=== PATIENT | male | born 1985 | race Caucasian/White ===

== ENCOUNTER 2019-03-27 13:23 | Inpatient (IN) ==
[2019-03-27] MEDS ORDERED: 0.9 % Sodium Chloride 1,000 ML IVC ONE ×3 (13:41→19:21)
--- NOTE | 2019-03-27 13:44 | Emergency Department Note ---
Disposition Clinical Impression: Acute epididymitis Sepsis Qualifiers: Sepsis type: sepsis due to unspecified organism Qualified Code(s): A41.9 - Sepsis, unspecified organism Urinary tract infection Qualifiers: Urinary tract infection type: acute cystitis Hematuria presence: without hematuria Qualified Code(s): N30.00 - Acute cystitis without hematuria Disposition: Still a Patient Referrals: NONE,PCP [Primary Care Provider] - Forms: ED Satisfaction Letter Time of Disposition: 19:18 General Adult HPI - General Chief complaint: ED Urogenital-Male Stated complaint: Low back pain,Unable to urinateTesticular pain Time Seen by Provider: 03/27/19 13:33 Source: patient, family Mode of arrival: private vehicle Limitations: no limitations Nursing Notes Reviewed: Yes Vital Signs Reviewed: Yes - History of Present Illness HPI Narrative: Patient is a 33-year-old male with no past medical history presenting with a chief complaint of difficulty urinating and right testicular swelling since yesterday. He states he has been having intermittent swelling and pain of his right testicle for several weeks. He went to the emergency department 2 weeks ago and was diagnosed with epididymitis. He was discharged home on doxycycline for 2 weeks. He states as of yesterday, he had 2 pills left. He states he was feeling better until yesterday morning when he woke up having difficulty urinating throughout the day. He states it is decreased urination, dark urine, foul smelling and he has a difficult time starting a stream. He also low back pain and intermittent abdominal pain after he urinates. He denies hematuria. He also states his right testicle is swollen again and painful. He complains of chills but no documented fevers. He has decreased appetite, nausea but no vomiting. No abnormal bowel movements. He states he has not urinated since yesterday evening. He states he has had sexual activity with one partner the past couple of weeks. Denies back trauma. Pain Scale: 6 - Related Data Previous Rx's Medication Instructions Recorded Doxycycline Monohydrate [Mondoxyne 100 mg PO BID #28 capsule 03/10/19 ] Naproxen [Naprosyn] 500 mg PO BID #12 tablet 03/10/19 Allergies Allergy/AdvReac Type Severity Reaction Status Date / Time Amoxicillin Allergy Hives Verified 03/10/19 18:55 aspirin Allergy Hives Verified 03/10/19 18:55 All systems ED: reviewed and negative except as stated. Review of Systems: As Per HPI Constitutional: Reports: chills. Denies: fever Cardiovascular: Denies: chest pain, palpitations Respiratory: Denies: cough, dyspnea Gastrointestinal: Reports: abdominal pain, nausea. Denies: vomiting, diarrhea Genitourinary: Reports: dysuria, testicular pain. Denies: hematuria Neurological: Denies: headache, weakness Past Medical History - Past Medical History Attestation: Yes The following information was validated with the patient. 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 Absent: respiratory distress, wheezes - Cardiovascular Cardiovascular exam: Present: normal rhythm, tachycardia, normal heart sounds - Abdominal Exam Abdominal exam: Present: soft, Non-Tender. Absent: distention, guarding - Male exam: Present: other (Dr. Nettles present for examination. No gross testicular swelling, tenderness to palpation of right testicle in the posterior region, no knots noted, no abnormal discharge or lesions, uncircumcised without evidence of balanitis or phimosis. Cremasteric reflex present bilaterally) - Extremities Exam Extremities exam: Present: normal capillary refill. Absent: pedal edema - Back Exam Back exam: Present: other (No back tenderness to palpation). Absent: tenderness, CVA tenderness (R), CVA tenderness (L) - Neurological Exam Neurological exam: Present: alert, oriented X3 - Psychiatric Psychiatric exam: Present: normal affect, normal mood - Skin Skin exam: Present: warm, dry. Absent: diaphoresis, pallor Course Vital Signs Temperature 98.7 F 03/27/19 13:29 Pulse Rate 141 03/27/19 13:29 Respiratory Rate 16 03/27/19 13:29 Blood Pressure 126/73 03/27/19 13:29 O2 Sat by Pulse Oximetry 99 03/27/19 13:29 Temperature 98.0 F 03/27/19 17:07 Pulse Rate 117 03/27/19 19:15 Respiratory Rate 24 03/27/19 19:15 Blood Pressure 82/47 03/27/19 19:15 O2 Sat by Pulse Oximetry 100 03/27/19 19:15 Oxygen Delivery Oxygen Delivery Room Air Medical Decision Making - [facility] Narrative Medical decision making narrative: Patient likely has epididymitis and possible urinary tract infection. We will obtain urinalysis. He is tachycardic without a fever. We will give him 1 L IV fluids. We will obtain CBC, BMP. Patient did receive a 2 week course of doxycycline. There is no microbiology results for a prior urine culture. He had an ultrasound done on his prior ER visit two weeks ago that was positive for epididimitis. He is tenderness of the right testicle, likely has epididymitis as he did not finish his antibiotics. He has a cremasteric reflex that is present. No other acute abnormalities noted. No lesions, or abnormal discharge. Nontender abdomen. We will not repeat imaging as there is a low clinical suspicion for torsion. 15:45 Heart rate has decreased to 120s. Patient has any increased pain after urinating. Urinalysis pending at this time. We will give an additional liter of IV fluids. We will also give him IV Toradol. Will also give IV Levaquin. 16:00 Urinalysis is positive for leukocyte esterase. We will start IV Levaquin. Patient likely has epididymitis and urinary tract infection. Urine cultures will be sent. We will reevaluate the patient's vitals and how he is feeling after the second liter of IV fluids. Disposition is pending his response to fluids. 17:00 Reassess the patient. Patient's girlfriend at bedside states the patient did not complete his antibiotics. She states that he stopped them regularly when he started to feel better. When he started feeling bad yesterday he started to take them again. He still remains tachycardic with heart rate 120s after 2L IVFs. 17:10 Patient's blood pressures borderline. Aviles tart maintenance fluids. Add Rocephin to the Levaquin. He will require admission for sepsis due to e pididymitis and urinary tract infection. 17:20 Discussed with Hospitalist, Dr. Arredondo, who is requesting a repeat ultrasound scrotum to rule out torsion. 18:30 Most recent blood pressure is 103 systolic. Patient reevaluated, he is still complaining of testicular pain that really turn. We will give another dose of IV Toradol. He is also complaining of nausea. We will give Zofran. Patient n ow admits that he had IV drug use and he has track handy on his arm. Family thinks he is also withdrawing. 19:00 At the time of signout, the snack stewardess's family states the patient also has a history of hepatitis A, B, C which she does not receive any medications for. He has not been complaining of abdominal pain however discussed with sign out that the patient will receive a CT abdomen and pelvis to evaluate for pyelonephritis, acute surgical issue such as appendicitis. She was signed out to Dr. Ponce and Dr. Serna. - Medical Records Medical records reviewed: Yes I reviewed the patient's medical records. - Lab Data Lab results reviewed: Yes I reviewed the patient's lab results. Result diagrams: 03/27/19 13:41 03/27/19 13:41 Lab Results 03/27/19 03/27/19 03/27/19 Range/Units 13:41 13:41 15:37 WBC 11.5 H (4.3-11.1) K/mcL RBC 5.07 (4.19-5.50) M/mcL Hgb 14.6 (12.9-16.9) g/dL Hct 45.3 (37.5-50.1) % MCV 89.3 (83.0-100.0) fL MCH 28.8 (28.0-33.3) pg MCHC 32.2 (31.6-35.5) g/dL RDW 13.9 (11.5-14.5) % Plt Count 164 (140-400) K/mcL MPV 9.2 L (9.4-12.4) fL Seg Neutrophils % 83.0 % Band Neutrophils % 14.0 H (0-4) % Lymphocytes % 2.0 % Monocytes % 1.0 % Neutrophils # 11.2 H (1.6-8.9) K/mcL Lymphocytes # 0.2 L (0.6-4.6) K/mcL Monocytes # 0.1 (0.0-1.3) K/mcL Platelet Estimate Normal (Normal) Large Platelets Present A (Not Present) Sodium 140 (136-145) mEq/L Potassium 5.0 (3.5-5.1) mEq/L Chloride 101 (98-107) mEq/L Carbon Dioxide 28 (23-29) mEq/L BUN 12 (6-20) mg/dL Creatinine 1.04 (0.70-1.30) mg/dL Est GFR ( Amer) > 60 (> 60) Est GFR (Non-Af Amer) > 60 (> 60) BUN/Creatinine Ratio 12 (6-26) Glucose 129 H (70-105) mg/dL Calculated Osmolality 291 (280-300) Lactic Acid (0.5-2.2) mmol/L Calcium 9.5 (8.6-10.3) mg/dL Urine Color Dark Yellow (Yellow) Urine Clarity Clear (Clear) Urine pH 6.0 (5.0-8.0) pH Units Ur Specific [place] < 1.005 L (1.010-1.025) Urine Protein Negative (Neg-Trace) mg/dL Urine Glucose (UA) Normal (Normal) mg/dL Urine Ketones Negative (Negative) mg/dL Urine Blood Negative (Negative) Urine Nitrite Negative (Negative) Urine Bilirubin Small H (Negative) Urine Urobilinogen Normal (Normal) mg/dL Ur Leukocyte Esterase Trace H (Negative) Urine Microscopic RBC 0-3 (0-3) per hpf Urine Microscopic WBC 0-3 (0-3) per hpf Ur Squamous Epith Cells Few (None-Few) per lpf Urine Bacteria None Seen (None-Few) per hpf Hyaline Casts None Seen (None-Few) per lpf Urine Yeast TNP Ur Culture Indicated? YES A (NO) 03/27/19 Range/Units 17:05 WBC (4.3-11.1) K/mcL RBC (4.19-5.50) M/mcL Hgb (12.9-16.9) g/dL Hct (37.5-50.1) % MCV (83.0-100.0) fL MCH (28.0-33.3) pg MCHC (31.6-35.5) g/dL RDW (11.5-14.5) % Plt Count (140-400) K/mcL MPV (9.4-12.4) fL Seg Neutrophils % % Band Neutrophils % (0-4) % Lymphocytes % % Monocytes % % Neutrophils # (1.6-8.9) K/mcL Lymphocytes # (0.6-4.6) K/mcL Monocytes # (0.0-1.3) K/mcL Platelet Estimate (Normal) Large Platelets (Not Present) Sodium (136-145) mEq/L Potassium (3.5-5.1) mEq/L Chloride (98-107) mEq/L Carbon Dioxide (23-29) mEq/L BUN (6-20) mg/dL Creatinine (0.70-1.30) mg/dL Est GFR ( Amer) (> 60) Est GFR (Non-Af Amer) (> 60) BUN/Creatinine Ratio (6-26) Glucose (70-105) mg/dL Calculated Osmolality (280-300) Lactic Acid 2.3 H (0.5-2.2) mmol/L Calcium (8.6-10.3) mg/dL Urine Color (Yellow) Urine Clarity (Clear) Urine pH (5.0-8.0) pH Units Ur Specific [place] (1.010-1.025) Urine Protein (Neg-Trace) mg/dL Urine Glucose (UA) (Normal) mg/dL Urine Ketones (Negative) mg/dL Urine Blood (Negative) Urine Nitrite (Negative) Urine Bilirubin (Negative) Urine Urobilinogen (Normal) mg/dL Ur Leukocyte Esterase (Negative) Urine Microscopic RBC (0-3) per hpf Urine Microscopic WBC (0-3) per hpf Ur Squamous Epith Cells (None-Few) per lpf Urine Bacteria (None-Few) per hpf Hyaline Casts (None-Few) per lpf Urine Yeast Ur Culture Indicated? (NO) - EKG Data EKG #1 EKG attestation: Yes I reviewed and interpreted this EKG. EKG results narrative: EKG obtained at 1751 shows sinus tachycardia with heart rate 120, WA interval 135, QRS duration 85, QTC 402, no ST elevation or depression. Critical Care Time Critical Care Time: Yes Total Critical Care Time: 35 Attestation: Rectal care time 35 minutes managing patient's sepsis. Attestation Statement - Attestation Attestation: Patient was seen with resident physician. I reviewed the history, physical, assessment and plan, and agree with the findings. I also personally evaluated this patient and had [id number] time with this patient. 33-year-old male who presents emergency Department with a history of epididymitis in the right side. He is been treated with doxycycline for the last 2 weeks. He said initially was getting better but over the last couple days been getting progressively worse. He is had increasing pain and inability to urinate. He says since yesterday. He is also had decreased by mouth intake. No nausea or vomiting. No diarrhea. Denies penile discharge. No other complaints. Patient does admit to being noncompliant with his antibiotics that he was ordered. Review of systems as above remainder negative. Physical exam vital signs are stable. ENT is unremarkable. Heart regular rhythm and rate. Lungs clear. Abdomen soft nontender. Extremities are unremarkable. Neurologically intact. Skin no rashes P it psych normal. patient has tenderness palpation of the right testicle posteriorly. There is no discharge seen from the penis anatomically is otherwise normal. ED course. Patient's initial vital signs were okay, but through the course of his stay he developed hypotension and indicated signs of sepsis. He did have tachycardia which resolved with some IV fluids. Initially we were not going to do additional imaging because the patient had no real abdominal pain and his symptoms were consistent with epididymitis. However hospitalist wanted get an ultrasound of the testicle. Additionally with a difficult time that we had getting the patient's blood pressure up above the [address] scan the abdomen and pelvis was ordered. This test was pending as was the ultrasound of the testicle at the time of shift change the patient was signed out to Dr. Merino for final d isposition. His blood pressure had improved to over 100 systolic. Patient was given some nausea medicine as he does have track handy and he may have some withdrawal symptoms which may be to his overall condition. Inevitably the patient had sepsis with likely epididymitis as the cause. Critical care time 35 minutes. Additionally patient's EKG was okay. His chest x-ray shows some possible perihilar adenopathy. Recommending CT scan. This will be ordered as well.
[2019-03-27 14:17] LABS: Hematocrit 45.3 % (37.5-50.1); Hemoglobin 14.6 g/dL (12.9-16.9); Mean Corpuscular HGB Conc 32.2 g/dL (31.6-35.5); Mean Corpuscular Hemoglobin 28.8 pg (28.0-33.3); Mean Corpuscular Volume 89.3 fL (83.0-100.0); Mean Platelet Volume 9.2 fL (9.4-12.4); Monocytes # 0.1 K/mcL (0.0-1.3); Platelet Count 164 K/mcL (140-400); Red Blood Count 5.07 M/mcL (4.19-5.50); Red Cell Distribution Width 13.9 % (11.5-14.5)
[2019-03-27 14:37] LABS: BUN/Creatinine Ratio 12 (6-26); Blood Urea Nitrogen 12 mg/dL (6-20); Calcium 9.5 mg/dL (8.6-10.3); Carbon Dioxide 28 mEq/L (23-29); Chloride 101 mEq/L (98-107); Glucose 129 mg/dL (70-105); Osmolality,Calculated 291 (280-300); Sodium 140 mEq/L (136-145); eGFR For Non-African Americans > 60 (> 60)
[2019-03-27 14:45] LABS: Lymphocytes # 0.2 K/mcL (0.6-4.6); Neutrophils # 11.2 K/mcL (1.6-8.9)
[2019-03-27 14:46] LABS: Large Platelets Present (Not Present); Platelet Estimate Normal (Normal)
[2019-03-27 15:45] LABS: Bilirubin,Urine Small (Negative); Blood,Urine Negative (Negative); Clarity,Urine Clear (Clear); Color,Urine Dark Yellow (Yellow); Glucose,Urine (UA) Normal (Normal); Ketones,Urine Negative (Negative); Leukocyte Esterase,Urine Trace (Negative); Nitrite,Urine Negative (Negative); Protein,Urine Negative (Neg-Trace); Specific Gravity,Urine < 1.005 (1.010-1.025); Urobilinogen,Urine Normal (Normal)
[2019-03-27 15:51] LABS: Bacteria,Urine None Seen per hpf (None-Few); Hyaline Casts,Urine None Seen per lpf (None-Few); RBC,Urine 0-3 per hpf (0-3); Squamous Epithelial Cell,Urine Few per lpf (None-Few); WBC,Urine 0-3 per hpf (0-3)
[2019-03-27] MEDS ORDERED: Ketorolac 15 MG/ML VIAL IVP ONE ×2 (15:56→18:35)
[2019-03-27] MEDS ORDERED: Levofloxacin 750 MG/150 ML 750 MG/150 ML BAG IVPB ONE (16:25)
[2019-03-27] MEDS ORDERED: 0.9 % Sodium Chloride 1,000 ML ONE (17:09)
[2019-03-27] MEDS ORDERED: cefTRIAXone 2,000 MG in Water for inj. (sterile) 20 ML 20 ML IVP ONE (17:12)
[2019-03-27] MEDS: 0.9 % Sodium Chloride 1,000 ML IVC SCH ×2 (17:31→23:00)
[2019-03-27] MEDS ORDERED: Ondansetron 4 MG/2 ML VIAL IVP ONE ×3 (18:36→22:42)
[2019-03-27] MEDS ORDERED: Isovue-370 500 ML BOTTLE IVP ONE ×2 (19:06→19:23)
[2019-03-27 19:42] LABS: Alanine Aminotransferase 129 Units/L (7-52); Albumin 3.6 g/dL (3.5-5.7); Albumin/Globulin Ratio 1.1 (1.1-2.2); Alkaline Phosphatase 218 Units/L (34-104); Aspartate Amino Transferase 237 Units/L (13-39); Bilirubin,Direct 1.5 mg/dL (0.0-0.2); Bilirubin,Indirect 0.7 mg/dL (0.0-1.2); Bilirubin,Total 2.2 mg/dL (0.3-1.0); Globulin 3.3 g/dL (2.4-3.5); Lipase 18 Units/L (11-82); Total Protein 6.9 g/dL (6.4-8.9)
[2019-03-27] MEDS ORDERED: Norepinephrine 4 MG in D5% in Water 250 ML IVC SCH (20:00)
--- NOTE | 2019-03-27 20:03 | Emergency Department Note ---
Disposition Clinical Impression: Septic shock Pneumonia Qualifiers: Pneumonia type: due to unspecified organism Laterality: unspecified laterality Lung location: unspecified part of lung Qualified Code(s): J18.9 - Pneumonia, unspecified organism Disposition: Admitted As Inpatient Condition: Fair Referrals: NONE,PCP [Primary Care Provider] - Forms: ED Satisfaction Letter Time of Disposition: 20:46 General Adult HPI - General Chief complaint: ED Urogenital-Male Stated complaint: Low back pain,Unable to urinateTesticular pain Time Seen by Provider: 03/27/19 13:33 Source: patient, family Mode of arrival: private vehicle Limitations: no limitations - History of Present Illness Pain Scale: 10 - Related Data Previous Rx's Medication Instructions Recorded Doxycycline Monohydrate [Mondoxyne 100 mg PO BID #28 capsule 03/10/19 Nl] Naproxen [Naprosyn] 500 mg PO BID #12 tablet 03/10/19 Allergies Allergy/AdvReac Type Severity Reaction Status Date / Time Amoxicillin Allergy Hives Verified 03/10/19 18:55 aspirin Allergy Hives Verified 03/10/19 18:55 Constitutional: Reports: chills. Denies: fever Cardiovascular: Denies: chest pain, palpitations Respiratory: Denies: cough, dyspnea Gastrointestinal: Reports: abdominal pain, nausea. Denies: vomiting, diarrhea Genitourinary: Reports: dysuria, testicular pain. 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 This patinet appers to be in septic shock and is minimally responding to IVF. [id number] and still tachycardiac. He is otherwise a candidate for a central line placement and as agreed to femoral placement of central line. Patient has been consented by myself and understands the risk. I thnk he may be at risk for endocarditis or spetic emboli or acute van. CT pending. PAtinet will be admitted to a critical are unit or transferred to [facility]. Central line placed by Dr. Wade resident Time: 19:05 - Consultations Consultation #1: discussed case with Dr. Chavira and he accepts patient to medicine service. Time: 20:47 Vital Signs Temperature 98.7 F 03/27/19 13:29 Pulse Rate 141 03/27/19 13:29 Respiratory Rate 16 03/27/19 13:29 Blood Pressure 126/73 03/27/19 13:29 O2 Sat by Pulse Oximetry 99 03/27/19 13:29 Temperature 98.0 F 03/27/19 17:07 Pulse Rate 105 03/27/19 20:36 Respiratory Rate 16 03/27/19 20:36 Blood Pressure 85/56 03/27/19 20:36 O2 Sat by Pulse Oximetry 100 03/27/19 20:36 Oxygen Delivery Oxygen Delivery Room Air Medical Decision Making - Lab Data Result diagrams: 03/27/19 13:41 03/27/19 13:41 Lab Results 03/27/19 03/27/19 03/27/19 Range/Units 13:41 13:41 15:37 WBC 11.5 H (4.3-11.1) K/mcL RBC 5.07 (4.19-5.50) M/mcL Hgb 14.6 (12.9-16.9) g/dL Hct 45.3 (37.5-50.1) % MCV 89.3 (83.0-100.0) fL MCH 28.8 (28.0-33.3) pg MCHC 32.2 (31.6-35.5) g/dL RDW 13.9 (11.5-14.5) % Plt Count 164 (140-400) K/mcL MPV 9.2 L (9.4-12.4) fL Seg Neutrophils % 83.0 % Band Neutrophils % 14.0 H (0-4) % Lymphocytes % 2.0 % Monocytes % 1.0 % Neutrophils # 11.2 H (1.6-8.9) K/mcL Lymphocytes # 0.2 L (0.6-4.6) K/mcL Monocytes # 0.1 (0.0-1.3) K/mcL Platelet Estimate Normal (Normal) Large Platelets Present A (Not Present) Sodium 140 (136-145) mEq/L Potassium 5.0 (3.5-5.1) mEq/L Chloride 101 (98-107) mEq/L Carbon Dioxide 28 (23-29) mEq/L BUN 12 (6-20) mg/dL Creatinine 1.04 (0.70-1.30) mg/dL Est GFR ( Amer) > 60 (> 60) Est GFR (Non-Af Amer) > 60 (> 60) BUN/Creatinine Ratio 12 (6-26) Glucose 129 H (70-105) mg/dL Calculated Osmolality 291 (280-300) Lactic Acid (0.5-2.2) mmol/L Calcium 9.5 (8.6-10.3) mg/dL Total Bilirubin 2.2 H (0.3-1.0) mg/dL Direct Bilirubin 1.5 H (0.0-0.2) mg/dL Indirect Bilirubin 0.7 (0.0-1.2) mg/dL AST 237 H (13-39) Units/L ALT 129 H (7-52) Units/L Alkaline Phosphatase 218 H (34-104) Units/L Serum Total Protein 6.9 (6.4-8.9) g/dL Albumin 3.6 (3.5-5.7) g/dL Globulin 3.3 (2.4-3.5) g/dL Albumin/Globulin Ratio 1.1 (1.1-2.2) Lipase 18 (11-82) Units/L Urine Color Dark Yellow (Yellow) Urine Clarity Clear (Clear) Urine pH 6.0 (5.0-8.0) pH Units Ur Specific [place] < 1.005 L (1.010-1.025) Urine Protein Negative (Neg-Trace) mg/dL Urine Glucose (UA) Normal (Normal) mg/dL Urine Ketones Negative (Negative) mg/dL Urine Blood Negative (Negative) Urine Nitrite Negative (Negative) Urine Bilirubin Small H (Negative) Urine Urobilinogen Normal (Normal) mg/dL Ur Leukocyte Esterase Trace H (Negative) Urine Microscopic RBC 0-3 (0-3) per hpf Urine Microscopic WBC 0-3 (0-3) per hpf Ur Squamous Epith Cells Few (None-Few) per lpf Urine Bacteria None Seen (None-Few) per hpf Hyaline Casts None Seen (None-Few) per lpf Urine Yeast TNP Ur Culture Indicated? YES A (NO) 03/27/19 Range/Units 17:05 WBC (4.3-11.1) K/mcL RBC (4.19-5.50) M/mcL Hgb (12.9-16.9) g/dL Hct (37.5-50.1) % MCV (83.0-100.0) fL MCH (28.0-33.3) pg MCHC (31.6-35.5) g/dL RDW (11.5-14.5) % Plt Count (140-400) K/mcL MPV (9.4-12.4) fL Seg Neutrophils % % Band Neutrophils % (0-4) % Lymphocytes % % Monocytes % % Neutrophils # (1.6-8.9) K/mcL Lymphocytes # (0.6-4.6) K/mcL Monocytes # (0.0-1.3) K/mcL Platelet Estimate (Normal) Large Platelets (Not Present) Sodium (136-145) mEq/L Potassium (3.5-5.1) mEq/L Chloride (98-107) mEq/L Carbon Dioxide (23-29) mEq/L BUN (6-20) mg/dL Creatinine (0.70-1.30) mg/dL Est GFR ( Amer) (> 60) Est GFR (Non-Af Amer) (> 60) BUN/Creatinine Ratio (6-26) Glucose (70-105) mg/dL Calculated Osmolality (280-300) Lactic Acid 2.3 H (0.5-2.2) mmol/L Calcium (8.6-10.3) mg/dL Total Bilirubin (0.3-1.0) mg/dL Direct Bilirubin (0.0-0.2) mg/dL Indirect Bilirubin (0.0-1.2) mg/dL AST (13-39) Units/L ALT (7-52) Units/L Alkaline Phosphatase (34-104) Units/L Serum Total Protein (6.4-8.9) g/dL Albumin (3.5-5.7) g/dL Globulin (2.4-3.5) g/dL Albumin/Globulin Ratio (1.1-2.2) Lipase (11-82) Units/L Urine Color (Yellow) Urine Clarity (Clear) Urine pH (5.0-8.0) pH Units Ur Specific [place] (1.010-1.025) Urine Protein (Neg-Trace) mg/dL Urine Glucose (UA) (Normal) mg/dL Urine Ketones (Negative) mg/dL Urine Blood (Negative) Urine Nitrite (Negative) Urine Bilirubin (Negative) Urine Urobilinogen (Normal) mg/dL Ur Leukocyte Esterase (Negative) Urine Microscopic RBC (0-3) per hpf Urine Microscopic WBC (0-3) per hpf Ur Squamous Epith Cells (None-Few) per lpf Urine Bacteria (None-Few) per hpf Hyaline Casts (None-Few) per lpf Urine Yeast Ur Culture Indicated? (NO)
[2019-03-27] MEDS ORDERED: *HR* HYDROmorphone (PF) 1 MG/ML SYRINGE IVP ONE (20:25)
--- NOTE | 2019-03-27 20:31 | Emergency Department Note ---
Disposition Clinical Impression: Acute epididymitis Sepsis Qualifiers: Sepsis type: sepsis due to unspecified organism Qualified Code(s): A41.9 - Sepsis, unspecified organism Urinary tract infection Qualifiers: Urinary tract infection type: acute cystitis Hematuria presence: without hematuria Qualified Code(s): N30.00 - Acute cystitis without hematuria Disposition: Still a Patient Referrals: NONE,PCP [Primary Care Provider] - Forms: ED Satisfaction Letter Time of Disposition: 20:32 General Adult HPI - General Chief complaint: ED Urogenital-Male Stated complaint: Low back pain,Unable to urinateTesticular pain Time Seen by Provider: 03/27/19 13:33 Source: patient, family Mode of arrival: private vehicle Limitations: no limitations - History of Present Illness HPI Narrative: This is just a procedure note Pain Scale: 10 - Related Data Previous Rx's Medication Instructions Recorded Doxycycline Monohydrate [Mondoxyne 100 mg PO BID #28 capsule 03/10/19 Nl] Naproxen [Naprosyn] 500 mg PO BID #12 tablet 03/10/19 Allergies Allergy/AdvReac Type Severity Reaction Status Date / Time Amoxicillin Allergy Hives Verified 03/10/19 18:55 aspirin Allergy Hives Verified 03/10/19 18:55 Past Medical History - Past Medical History Medical history: Reports: asthma Surgical history: Reports: orthopedic, other (Finger surgery) Psychiatric history: Reports: no psych history - Social History Smoking Status: Current every day smoker Smokeless Tobacco Status: No Alcohol use: Reports: none 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, methamphetamine, IV Drug Use Physical Exam - General Limitations: no limitations General appearance: alert, in no apparent distress Course Vital Signs Temperature 98.7 F 03/27/19 13:29 Pulse Rate 141 03/27/19 13:29 Respiratory Rate 16 03/27/19 13:29 Blood Pressure 126/73 03/27/19 13:29 O2 Sat by Pulse Oximetry 99 03/27/19 13:29 Temperature 98.0 F 03/27/19 17:07 Pulse Rate 118 03/27/19 19:33 Respiratory Rate 17 03/27/19 19:33 Blood Pressure 94/68 03/27/19 19:33 O2 Sat by Pulse Oximetry 100 03/27/19 19:33 Oxygen Delivery Oxygen Delivery Room Air Procedures - Central Line Placement Right Femoral Central Line Inserted*: Yes Central Line Catheter Replacement*: No Central Line Insertion: emergent Consent Obtained: verbal consent, written consent Procedural Pause: verify patient name and date of , timeout performed per policy, [place] and assess the site, assemble equipment and verify supplies, perform hand hygiene Patient Placed on Monitor/Pulse Ox: Yes During the Procedure: clinician is wearing sterile gloves, cap, mask,& gown during insertion, sterile field and sterile technique are maintained, patient's face is covered with drape or mask and wearing a cap, everyone in room is wearing a mask Central Line Prep: Chlorhexidine scrub, sterile drapes applied Prep the Procedure Site: apply chloraprep to the skin using a back and forth scrubbing motion, drape the patient with a full body drape Local Anesthetic: lidocaine 1% Amount of anesthesia used (mL): 3 Ultrasound Used for Placement: Yes Central Line Lumen Inserted: triple Post Procedure: sutured in place, good blood return, all ports aspirated, flushed, capped, sterile dressing applied, guide wire removed and visualized, dressing is dated Post Procedure X-Ray: tip of catheter in good position Patient Tolerated Procedure: well Complications: none Date: 03/27/19 Time: 20:15 Medical Decision Making - MDM Narrative Medical decision making narrative: Procedure note - Lab Data Result diagrams: 03/27/19 13:41 03/27/19 13:41 Lab Results 03/27/19 03/27/19 03/27/19 Range/Units 13:41 13:41 15:37 WBC 11.5 H (4.3-11.1) K/mcL RBC 5.07 (4.19-5.50) M/mcL Hgb 14.6 (12.9-16.9) g/dL Hct 45.3 (37.5-50.1) % MCV 89.3 (83.0-100.0) fL MCH 28.8 (28.0-33.3) pg MCHC 32.2 (31.6-35.5) g/dL RDW 13.9 (11.5-14.5) % Plt Count 164 (140-400) K/mcL MPV 9.2 L (9.4-12.4) fL Seg Neutrophils % 83.0 % Band Neutrophils % 14.0 H (0-4) % Lymphocytes % 2.0 % Monocytes % 1.0 % Neutrophils # 11.2 H (1.6-8.9) K/mcL Lymphocytes # 0.2 L (0.6-4.6) K/mcL Monocytes # 0.1 (0.0-1.3) K/mcL Platelet Estimate Normal (Normal) Large Platelets Present A (Not Present) Sodium 140 (136-145) mEq/L Potassium 5.0 (3.5-5.1) mEq/L Chloride 101 (98-107) mEq/L Carbon Dioxide 28 (23-29) mEq/L BUN 12 (6-20) mg/dL Creatinine 1.04 (0.70-1.30) mg/dL Est GFR ( Amer) > 60 (> 60) Est GFR (Non-Af Amer) > 60 (> 60) BUN/Creatinine Ratio 12 (6-26) Glucose 129 H (70-105) mg/dL Calculated Osmolality 291 (280-300) Lactic Acid (0.5-2.2) mmol/L Calcium 9.5 (8.6-10.3) mg/dL Total Bilirubin 2.2 H (0.3-1.0) mg/dL Direct Bilirubin 1.5 H (0.0-0.2) mg/dL Indirect Bilirubin 0.7 (0.0-1.2) mg/dL AST 237 H (13-39) Units/L ALT 129 H (7-52) Units/L Alkaline Phosphatase 218 H (34-104) Units/L Serum Total Protein 6.9 (6.4-8.9) g/dL Albumin 3.6 (3.5-5.7) g/dL Globulin 3.3 (2.4-3.5) g/dL Albumin/Globulin Ratio 1.1 (1.1-2.2) Lipase 18 (11-82) Units/L Urine Color Dark Yellow (Yellow) Urine Clarity Clear (Clear) Urine pH 6.0 (5.0-8.0) pH Units Ur Specific [place] < 1.005 L (1.010-1.025) Urine Protein Negative (Neg-Trace) mg/dL Urine Glucose (UA) Normal (Normal) mg/dL Urine Ketones Negative (Negative) mg/dL Urine Blood Negative (Negative) Urine Nitrite Negative (Negative) Urine Bilirubin Small H (Negative) Urine Urobilinogen Normal (Normal) mg/dL Ur Leukocyte Esterase Trace H (Negative) Urine Microscopic RBC 0-3 (0-3) per hpf Urine Microscopic WBC 0-3 (0-3) per hpf Ur Squamous Epith Cells Few (None-Few) per lpf Urine Bacteria None Seen (None-Few) per hpf Hyaline Casts None Seen (None-Few) per lpf Urine Yeast TNP Ur Culture Indicated? YES A (NO) 03/27/19 Range/Units 17:05 WBC (4.3-11.1) K/mcL RBC (4.19-5.50) M/mcL Hgb (12.9-16.9) g/dL Hct (37.5-50.1) % MCV (83.0-100.0) fL MCH (28.0-33.3) pg MCHC (31.6-35.5) g/dL RDW (11.5-14.5) % Plt Count (140-400) K/mcL MPV (9.4-12.4) fL Seg Neutrophils % % Band Neutrophils % (0-4) % Lymphocytes % % Monocytes % % Neutrophils # (1.6-8.9) K/mcL Lymphocytes # (0.6-4.6) K/mcL Monocytes # (0.0-1.3) K/mcL Platelet Estimate (Normal) Large Platelets (Not Present) Sodium (136-145) mEq/L Potassium (3.5-5.1) mEq/L Chloride (98-107) mEq/L Carbon Dioxide (23-29) mEq/L BUN (6-20) mg/dL Creatinine (0.70-1.30) mg/dL Est GFR ( Amer) (> 60) Est GFR (Non-Af Amer) (> 60) BUN/Creatinine Ratio (6-26) Glucose (70-105) mg/dL Calculated Osmolality (280-300) Lactic Acid 2.3 H (0.5-2.2) mmol/L Calcium (8.6-10.3) mg/dL Total Bilirubin (0.3-1.0) mg/dL Direct Bilirubin (0.0-0.2) mg/dL Indirect Bilirubin (0.0-1.2) mg/dL AST (13-39) Units/L ALT (7-52) Units/L Alkaline Phosphatase (34-104) Units/L Serum Total Protein (6.4-8.9) g/dL Albumin (3.5-5.7) g/dL Globulin (2.4-3.5) g/dL Albumin/Globulin Ratio (1.1-2.2) Lipase (11-82) Units/L Urine Color (Yellow) Urine Clarity (Clear) Urine pH (5.0-8.0) pH Units Ur Specific [place] (1.010-1.025) Urine Protein (Neg-Trace) mg/dL Urine Glucose (UA) (Normal) mg/dL Urine Ketones (Negative) mg/dL Urine Blood (Negative) Urine Nitrite (Negative) Urine Bilirubin (Negative) Urine Urobilinogen (Normal) mg/dL Ur Leukocyte Esterase (Negative) Urine Microscopic RBC (0-3) per hpf Urine Microscopic WBC (0-3) per hpf Ur Squamous Epith Cells (None-Few) per lpf Urine Bacteria (None-Few) per hpf Hyaline Casts (None-Few) per lpf Urine Yeast Ur Culture Indicated? (NO)
[2019-03-27] MEDS ORDERED: Azithromycin 500 MG in D5% in Water 250 ML IVPB ONE (21:00)
[2019-03-27] MEDS ORDERED: Naloxone 0.4 MG/ML INJ IVP PRN (23:17)
[2019-03-27] MEDS ORDERED: Ondansetron 4 MG/2 ML VIAL IVP PRN (23:18)
--- NOTE | 2019-03-27 23:25 | Internal Med History&Physical ---
<Clara oRgers E - Last Filed: 03/28/19 01:29> Date of Encounter: 03/28/19 Time of Encounter: 22:45 Internal Medicine - H&P: HPI Chief complaint: testicular pain Admitted From: Home Plans for Post Hospital Care: Home History of present illness: Mr. Ann is a 33 year old male with past medical history of heroin use, hepatitis A, B, C, patient states he has had his liver shutdown twice. Patient stated 3 days ago he used IV heroin and since has not felt well. 2 weeks ago he was treated for epididymitis and did not finish his antibiotics. He states that he has been having back pain as well as testicular pain for the last 3 days. Patient states his last IV drug use of heroin was 3 days ago, he has had multiple relapses after 4 attempts at rehabilitation. He states he has been IV drug use for the past 16 years. His back pain he says is a dull ache, he said the testicular pain is like when he came in for epididymitis. Patient also states that he has been having a headache with some photophobia that has been has been off and on for the last few days, chills, nausea, pain with urination, scrotal pain after urination. Patient denies any chest pain, shortness of breath, neck pain, neck stiffness, fever, abdominal pain, penile discharge, urinary frequency or urgency. Patient was seen in the ED and his blood pressures decreased to 70s over 30s, he received a femoral line, has received 3 L of fluids, is on an norepinephrine drip at 3 units with his blood pressure stabilized at 110/64. Chest CT showed no evidence of acute pulmonary embolism, scattered areas of ill- defined patchy groundglass attenuation, some septal thickening and micro- nodularities in the periphery of the right lower lobe, middle lobe, and small area in the left lower lobe, there is accompanying right hilar adenopathy likely reactive, findings may reflect developing pneumonitis possibly an atypical pneum onia. Periportal edema and lymphadenopathy in keeping with history of hepatitis. Chest x-ray showed no focal consolidation, some fullness of the right hilar region raises possibility of adenopathy Scrotal ultrasounds showed unremarkable testicular ultrasound with normal Doppler flow, no evidence of testicular torsion. Hypervascular right epididymis consistent with acute epididymitis. Patient was given a dose of Rocephin in the ED as well as vancomycin, azithromycin, and Levaquin. Patient was given Toradol for pain. Patient was also given Dilaudid for pain. Past Med Surg Social Fam HX - Past Medical History Medical history: asthma Additional medical history: IV drug abuse, Psychiatric history: no psych history - Past Surgical History Surgical History: orthopedic, other Additional surgical history: finger sx - Social History Smoking Status: Current every day smoker Smokeless Tobacco Status: No Alcohol use: none Drug use: opiates, methamphetamine, IV Drug Use Internal Medicine - H&P: Meds No Known Home Drugs 03/28/19 [History] Allergy/AdvReac Type Severity Reaction Status Date / Time Amoxicillin Allergy Hives Verified 03/28/19 12:10 aspirin Allergy Hives Verified 03/28/19 12:10 All Systems PM: A 10-system review of systems was performed and is negative for pertinent findin gs except as documented above in the HPI. - Constitutional Constitutional: chills, fatigue, lethargy, no anorexia, no fever(s) - EENT Eyes: no blurry vision, no change in vision Nose, mouth and throat: no dry mouth, no dysphagia, no nasal congestion, no sinus pressure, no sore throat - Cardiovascular Cardiovascular ROS IM: no chest pain, no edema, no irregular heart rhythm, no palpitations, no syncope - Respiratory Respiratory: no cough, no hemoptysis, no excessive phlegm production - Gastrointestinal Gastrointestinal: nausea, no bloating, no change in bowel habits, no con stipation, no diarrhea, no vomiting - Genitourinary Genitourinary ROS male: dysuria, genital pain, testicular pain, no hematuria, no penile discharge, no urinary frequency, no urinary hesitancy - Musculoskeletal Musculoskeletal ROS IM: back pain, no joint swelling, no muscle weakness - Integumentary Integumentary IM: no erythema, no pruritus, no rash - Neurological Neurological ROS: no dizziness, no weakness - Psychiatric Psychiatric: no change in appetite, no suicidal ideation - Constitutional Vitals: Temp Pulse Resp BP Pulse Ox 98.2 F 84 18 120/77 96 03/27/19 22:00 03/27/19 23:00 03/27/19 23:00 03/27/19 23:00 03/27/19 23:00 Exam: General: AAO 3, patient is tired and apologizes for keeping falling asleep, answers questions appropriately, no acute distress Head: normocephalic, atraumatic Eyes: SIMON, no icterus Mouth: His memory is moist Neck: Trachea midline, no lymphadenopathy Cardio: RRR, no mumurs, rubs, or gallops Respiratory: CTAB, no wheezing, rhonchi, rales Abd: normal bowel sounds, no gaurding or rigidity Extremties: no peda edema, pulses equal bilaterally, warm noted bruising as well as track handy on patient's arms bilaterally Skin: warm, dry, intact Internal Med - H&P Results - Labs CBC & Chem 7: 03/27/19 13:41 03/27/19 13:41 Labs: Short CBC 03/27/19 Range/Units 13:41 WBC 11.5 H (4.3-11.1) K/mcL Hgb 14.6 (12.9-16.9) g/dL Hct 45.3 (37.5-50.1) % Plt Count 164 (140-400) K/mcL Neutrophils # 11.2 H (1.6-8.9) K/mcL BMP 03/27/19 13:41 Sodium 140 Potassium 5.0 Chloride 101 Carbon Dioxide 28 BUN 12 Creatinine 1.04 Glucose 129 H Calcium 9.5 Liver Function 03/27/19 Range/Units 13:41 Total Bilirubin 2.2 H (0.3-1.0) mg/dL Direct Bilirubin 1.5 H (0.0-0.2) mg/dL AST 237 H (13-39) Units/L ALT 129 H (7-52) Units/L Alkaline Phosphatase 218 H (34-104) Units/L Albumin 3.6 (3.5-5.7) g/dL Urine 03/27/19 Range/Units 15:37 Urine Color Dark Yellow (Yellow) Urine Clarity Clear (Clear) Urine pH 6.0 (5.0-8.0) pH Units Ur Specific [place] < 1.005 L (1.010-1.025) Urine Protein Negative (Neg-Trace) mg/dL Urine Glucose (UA) Normal (Normal) mg/dL - Impressions ITS Impressions Scrotum Ultrasound 03/27/19 17:20 IMPRESSION: Unremarkable testicular ultrasound with normal Doppler flow. No evidence of testicular torsion. Hypervascular right epididymis consistent with acute epididymitis. D/ / Arya Jameson MD / Arya Jameson MD Interpreting Provider: Arya Jameson MD Chest X-Ray 03/27/19 18:36 IMPRESSION: No focal consolidation. Some fullness in the right hilar region raises possibility of adenopathy. Consider CT chest with IV contrast for further evaluation. D/ / Bayron Diehl MD / Bayron Diehl MD Interpreting Provider: Bayron Diehl MD Abdomen/Pelvis CT 03/27/19 19:06 IMPRESSION: 1. No evidence for acute pulmonary embolism. 2. Scattered areas of ill-defined patchy ground-glass attenuation is, some septal thickening and micro nodularities in the periphery of the right lower lobe, middle lobe and small area in the left lower lobe. There is accompanying right hilar adenopathy likely reactive. Findings may reflect developing pneumonitis possibly an atypical pneumonia. 3. Periportal edema and lymphadenopathy in keeping with the history of hepatitis. D/ / Bayron Diehl MD / Bayron Diehl MD Interpreting Provider: Bayron Diehl MD Chest CTA 03/27/19 19:23 IMPRESSION: 1. No evidence for acute pulmonary embolism. 2. Scattered areas of ill-defined patchy ground-glass attenuation is, some septal thickening and micro nodularities in the periphery of the right lower lobe, middle lobe and small area in the left lower lobe. There is accompanying right hilar adenopathy likely reactive. Findings may reflect developing pneumonitis possibly an atypical pneumonia. 3. Periportal edema and lymphadenopathy in keeping with the history of hepatitis. D/ / Bayron Diehl MD / Bayron Diehl MD Interpreting Provider: Bayron Diehl MD - Assessment and Plan (1) Septic shock Current Visit: Yes Status: Acute Assessment and plan: Patient was suspected of septic shock Patient's blood pressure is an ED 74/50 that was unresponsive to limits Femoral line was started and norepinephrine was given Patient's norepinephrine was initially at 8 units per hour but has been decreased to 3 units per hour with blood pressure is 110's/70's Patient is tachycardic Afebrile Possible source infection from epididymitis White blood cell count slightly elevated 11.5 Lactic acid 2.3 Continue IV fluids at 1 50 mL/h Slowly titrate off norepinephrine Blood cultures pending Urine culture pending Continue vancomycin and Rocephin (2) Epididymitis Current Visit: Yes Status: Acute Assessment and plan: Patient diagnosed with epididymitis 2 weeks ago Patient did not completely outpatient antibiotics just recently restarted them when he started having symptoms again Testicular ultrasound was done showed hypervascularity of the epididymis Patient has been having unprotected sex with his girlfriend relapsed few weeks Patient denies any penile discharge Urine chlamydia and gonorrhea ordered HIV test ordered UA showed dark yellow urine with a pH of 6 and specific gravity less than 1.005, small bilirubin, trace leukocyte esterase, few squamous epithelial cells, too numerous yeast and culture was reflexed Patient was started on Rocephin Continue to monitor (3) IVDU (intravenous drug user) Current Visit: Yes Status: Acute Assessment and plan: Patient's last known drug use 3 days ago Patient struggled preference IV heroin Concern due to patient having used same day that he started having overall s ymptoms of not feeling well Patient also hypotensive Echocardiogram ordered for endocarditis or vegetation rule out Monitor for withdrawal symptoms Avoid opiate pain medications if possible (4) Elevated liver enzymes Current Visit: Yes Status: Acute Assessment and plan: Total bilirubin 2.2, direct bilirubin 1.5, AST 237, ALC 129, alkaline phosphatase 218 Patient has history of elevated liver enzymes Patient said he had a history of hepatitis but did not specify which kinds, stated he was not sure Hepatitis Panel Ordered for a, B, C Continue to trend liver enzymes (5) DVT prophylaxis Current Visit: Yes Status: Acute Assessment and plan: scds (6) Pneumonia Current Visit: Yes Status: Suspected Assessment and plan: Chest CT showed scattered areas of ill-defined patchy groundglass attenuation, some septal thickening and micro-nodularities in the periphery of the right lower lobe, middle lobe and small area in the left lower lobe. There is accompanying right hilar adenopathy likely reactive. Findings may reflect developing pneumonitis possibly an atypical pneumonia Patient was given azithromycin and Levaquin in the ER We will continue to monitor the patient's clinical progress Supplemental oxygen as needed Qualifiers: Pneumonia type: due to unspecified organism Laterality: unspecified laterality Lung location: unspecified part of lung Qualified Code(s): J18.9 - Pneumonia, unspecified organism - Time Spent With Patient Total time spent is greater than 50% in coordination of care (as documented) at patient's floor/unit and/or counseling patient: <Art Whitman - Last Filed: 03/28/19 18:59> Date of Encounter: 03/27/19 Internal Medicine - H&P: HPI History of present illness: Mr. Ann is a 33 year old male All Systems PM: A 10-system review of systems was performed and is negative for pertinent findings except as documented above in the HPI. - Constitutional Vitals: Temp Pulse Resp BP Pulse Ox 97.9 F 89 18 108/68 100 03/28/19 16:31 03/28/19 16:31 03/28/19 16:31 03/28/19 16:31 03/28/19 16:31 Internal Med - H&P Results - Labs CBC & Chem 7: 03/28/19 04:28 03/28/19 04:28 Labs: Short CBC 03/28/19 Range/Units 04:28 WBC 34.3 H* D (4.3-11.1) K/mcL Hgb 12.6 L D (12.9-16.9) g/dL Hct 37.2 L (37.5-50.1) % Plt Count 133 L (140-400) K/mcL Neutrophils # 28.0 H (1.6-8.9) K/mcL BMP 03/27/19 03/28/19 13:41 04:28 Sodium 140 135 L Potassium 5.0 4.2 Chloride 101 107 Carbon Dioxide 28 21 L BUN 12 16 Creatinine 1.04 0.81 Glucose 129 H 83 Calcium 9.5 7.4 L Liver Function 03/27/19 03/28/19 Range/Units 13:41 04:28 Total Bilirubin 2.2 H 2.2 H (0.3-1.0) mg/dL Direct Bilirubin 1.5 H (0.0-0.2) mg/dL AST 237 H 86 H (13-39) Units/L ALT 129 H 82 H (7-52) Units/L Alkaline Phosphatase 218 H 121 H (34-104) Units/L Albumin 3.6 2.8 L (3.5-5.7) g/dL - Impressions ITS Impressions Scrotum Ultrasound 03/27/19 17:20 IMPRESSION: Unremarkable testicular ultrasound with normal Doppler flow. No evidence of testicular torsion. Hypervascular right epididymis consistent with acute epididymitis. D/ / Arya Jameson MD / Arya Jameson MD Interpreting Provider: Arya Jameson MD Chest X-Ray 03/27/19 18:36 IMPRESSION: No focal consolidation. Some fullness in the right hilar region raises possibility of adenopathy. Consider CT chest with IV contrast for further evaluation. D/ / Bayron Diehl MD / Bayron Diehl MD Interpreting Provider: Bayron Diehl MD Abdomen/Pelvis CT 03/27/19 19:06 IMPRESSION: 1. No evidence for acute pulmonary embolism. 2. Scattered areas of ill-defined patchy ground-glass attenuation is, some septal thickening and micro nodularities in the periphery of the right lower lobe, middle lobe and small area in the left lower lobe. There is accompanying right hilar adenopathy likely reactive. Findings may reflect developing pneumonitis possibly an atypical pneumonia. 3. Periportal edema and lymphadenopathy in keeping with the history of hepatitis. D/ / Bayron Diehl MD / Bayron Diehl MD Interpreting Provider: Bayron Diehl MD Chest CTA 03/27/19 19:23 IMPRESSION: 1. No evidence for acute pulmonary embolism. 2. Scattered areas of ill-defined patchy ground-glass attenuation is, some septal thickening and micro nodularities in the periphery of the right lower lobe, middle lobe and small area in the left lower lobe. There is accompanying right hilar adenopathy likely reactive. Findings may reflect developing pneumonitis possibly an atypical pneumonia. 3. Periportal edema and lymphadenopathy in keeping with the history of hepatitis. D/ / Bayron Diehl MD / Bayron Diehl MD Interpreting Provider: Bayron Diehl MD Echocardiogram 03/28/19 00:02 Impressions: LVEF 60%. Normal LV chamber size, wall thickness and function. Normal left ventricular diastolic function. Normal right ventricular structure and function. No evidence of pulmonary hypertension. No significant valvular dysfunction Left Ventricular Wall Motion: Rest Echo Findings All wall segments showed normal motion. Findings: Study Quality * Technically adequate exam. ECG Findings * Normal sinus rhythm. Left Ventricle * LVEF 60%. * Normal LV chamber size, wall thickness and function. * Normal left ventricular diastolic function. Right Ventricle * Normal right ventricular structure and function. Left Atrium * Normal left atrial size. Right Atrium * Normal right atrial size. Aortic Valve * Aortic valve not well visualized. * No aortic regurgitation. * No aortic stenosis. Mitral Valve * Normal mitral valve structure. * No mitral regurgitation. * No mitral stenosis. Tricuspid Valve * Normal tricuspid valve structure. * No evidence of pulmonary hypertension. * No tricuspid regurgitation. * No tricuspid stenosis. Pulmonic Valve * No pulmonic regurgitation. Aorta * Normally sized aortic root. Pericardium * The pericardium appears normal. IVC * The IVC is dilated. Pulmonary Artery * Normal visualized portions of the main pulmonary artery. - Assessment and Plan (1) Pneumonia Current Visit: Yes Status: Suspected Qualifiers: Pneumonia type: due to unspecified organism Laterality: unspecified laterality Lung location: unspecified part of lung Qualified Code(s): J18.9 - Pneumonia, unspecified organism (2) Epididymitis Current Visit: Yes Status: Acute (3) IVDU (intravenous drug user) Current Visit: Yes Status: Acute (4) DVT prophylaxis Current Visit: Yes Status: Acute (5) Elevated liver enzymes Current Visit: Yes Status: Acute (6) Sepsis Current Visit: Yes Status: Acute Qualifiers: Sepsis type: sepsis due to unspecified organism Qualified Code(s): A41.9 - Sepsis, unspecified organism (7) Hep C w/o coma, chronic Current Visit: Yes Status: Chronic (8) Tobacco abuse Current Visit: Yes Status: Acute - Time Spent With Patient Total time spent is greater than 50% in coordination of care (as documented) at patient's floor/unit and/or counseling patient: - Attending Attestation Performed a history and physical examination of the patient and discussed his management with the resident. I reviewed the resident's note and agree with the assessment and plan of care. Patient is a 33-year-old male with past medical history of IV drug abuse and hepatitis C recently evaluated in the ED for right testicular pain presumably secondary to epididymitis and given a two-week course of doxycycline now returns with abdominal pain nausea vomiting. Found to be in septic shock; placed on pressor support and transferred to the ICU. We will place on broad spectrum antibiotics. At this time source of infection remains unclear. Appreciate ID input. Continue with broad-spectrum antibiotic coverage.
[2019-03-28 00:38] LABS: Amphetamine Screen,Urine Positive ng/mL (Cutoff=1000); Barbiturate Screen,Urine Negative ng/mL (Cutoff=200); Benzodiazepines Screen,Urine Positive ng/mL (Cutoff=200); Cannabinoid Screen,Urine Positive ng/mL (Cutoff = 50); Cocaine Screen,Urine Negative ng/mL (Cutoff= 300); Opiate Screen,Urine Positive ng/mL (Cutoff=300); Phencyclidine Screen,Urine Negative ng/mL (Cutoff=25)
[2019-03-28] MEDS ORDERED: OXYCODONE Oral CONC 10 MG/0.5 ML ORAL.SYG SL PRN ×5 (03:19→14:07)
[2019-03-28 03:44] LABS: Chlamydia Trachomatis DNA Ur NOT DETECTED (Not Detect)
[2019-03-28 04:38] LABS: Hematocrit 37.2 % (37.5-50.1)
[2019-03-28 04:39] LABS: Basophils % 0.3 %; Immature Granulocytes % 2.5 % (0-4)
[2019-03-28 04:40] LABS: Basophils # 0.1 K/mcL (0.0-0.2); Hemoglobin 12.6 g/dL (12.9-16.9); Lymphocytes # 3.1 K/mcL (0.6-4.6); Lymphocytes % 8.9 %; Mean Corpuscular HGB Conc 33.9 g/dL (31.6-35.5); Mean Corpuscular Hemoglobin 29.4 pg (28.0-33.3); Mean Corpuscular Volume 86.9 fL (83.0-100.0); Mean Platelet Volume 10.2 fL (9.4-12.4); Monocytes # 2.3 K/mcL (0.0-1.3); Monocytes % 6.6 %; Platelet Count 133 K/mcL (140-400); Red Blood Count 4.28 M/mcL (4.19-5.50); Red Cell Distribution Width 14.2 % (11.5-14.5); Segmented Neutrophils % 81.7 %
[2019-03-28] MEDS ORDERED: MetroNIDAZOLE 500 MG/100 ML 500 MG/100 ML BAG IVPB SCH (04:48)
[2019-03-28 04:57] LABS: Alanine Aminotransferase 82 Units/L (7-52); Albumin 2.8 g/dL (3.5-5.7); Albumin/Globulin Ratio 1.1 (1.1-2.2); Alkaline Phosphatase 121 Units/L (34-104); Aspartate Amino Transferase 86 Units/L (13-39); BUN/Creatinine Ratio 20 (6-26); Bilirubin,Total 2.2 mg/dL (0.3-1.0); Blood Urea Nitrogen 16 mg/dL (6-20); Calcium 7.4 mg/dL (8.6-10.3); Carbon Dioxide 21 mEq/L (23-29); Chloride 107 mEq/L (98-107); Globulin 2.6 g/dL (2.4-3.5); Glucose 83 mg/dL (70-105); Osmolality,Calculated 280 (280-300); Potassium 4.2 mEq/L (3.5-5.1); Sodium 135 mEq/L (136-145); Total Protein 5.4 g/dL (6.4-8.9); eGFR For Non-African Americans > 60 (> 60)
[2019-03-28 05:22] LABS: Hepatitis B Surface Antigen Nonreactive (Nonreactive); Platelet Estimate Slight Decrease (Normal); Reactive Lymphocytes Present (Not Present)
[2019-03-28 05:50] LABS: Hepatitis B Core IgM Nonreactive (Nonreactive)
[2019-03-28 05:52] LABS: Hepatitis A Antibody IgM Nonreactive (Nonreactive)
[2019-03-28] MEDS ORDERED: traMADol 50 MG TABLET PO ONE (06:20)
[2019-03-28 07:36] LABS: Hepatitis C Virus Antibody Reactive (Nonreactive)
[2019-03-28] MEDS: Cefepime HCl 2,000 MG in Water for inj. (sterile) 20 ML 20 ML IVPB SCH ×2 (07:54→11:39)
--- NOTE | 2019-03-28 08:06 | Internal Med Progress Note ---
<Azeem Kidd - Last Filed: 03/28/19 15:43> Hospitalist Progress Note - Encounter Date of Encounter: 03/28/19 Time of Encounter: 09:00 - Subjective Interval History: The patient is resting comfortably in bed at time of examination. He says that overall he is feeling a little bit better than when he arrived. He says that hi s most painful area is still in his scrotum and testicles, however overall have improved. He reports no acute complaints this morning - Exam Vitals: Temp Pulse Resp BP Pulse Ox 97.8 F 80 15 107/78 99 03/28/19 07:52 03/28/19 06:00 03/28/19 06:00 03/28/19 06:00 03/28/19 06:00 Exam: Gen: Vitals noted. No acute distress. Eyes: anicteric sclerae, moist conjunctivae; no lid-lag; Pupils equal and reactive to light HENT: Atraumatic; oropharynx clear with moist mucous membranes and no mucosal ulcerations; normal hard and soft palate Neck: Trachea midline; supple, no thyromegaly or lymphadenopathy Cardiac: RRR, no murmur, +S1/S2 Pulmonary: Diffusely wheezy bilaterally with no superimposed rales or rhonchi Abdomen: soft, nontender, no guarding. No masses or hepatosplenomegaly : Uncircumcised male genitalia without lesions noted, no discharge. Scrotum intact, no erythema present. Testes tender to palpation however no lumps or irregularities noted. Rectal: Deferred MSK: ROM intact, no joint swelling noted Extremities: no BLE edema, nontender calf, no cyanosis or clubbing Skin: Normal temperature, turgor and texture; no rash, ulcers or subcutaneous nodules Neuro: moves all extremities, no focal deficits. Psych: Appropriate mood and behavior. A&Ox3 - Assessment and Plan (1) Pneumonia Current Visit: Yes Status: Suspected Assessment and Plan: Suspected atypical pneumonia as demonstrated on CT chest May be a source of severe sepsis Patient has substantial wheezing noted bilaterally Blood cultures pending at this time Continue cefepime, vancomycin, doxycycline day 1 Duo nebs as needed Monitor oxygen, supplement as needed Incentive spirometer (2) Epididymitis Current Visit: Yes Status: Acute Assessment and Plan: Acute epididymitis as demonstrated by ultrasound Patient currently on cefepime, vancomycin, doxycycline (3) IVDU (intravenous drug user) Current Visit: Yes Status: Acute Assessment and Plan: History of IV drug use, last known use 3 days ago (4) Elevated liver enzymes Current Visit: Yes Status: Acute Assessment and Plan: Liver enzymes elevated on arrival Hepatitis C positive, known Trending downward We will check INR in the morning (5) DVT prophylaxis Current Visit: Yes Status: Acute Assessment and Plan: Subcutaneous heparin (6) Sepsis Current Visit: Yes Status: Acute Assessment and Plan: Sepsis secondary to epididymitis versus pneumonia Presented with WBC 11.5 -> 34.3, HR >120, BP 87/63, Lactic acid 2.3 -> 2.6. Suspected source epididymitis vs. pneumonia Patient does have history of IV drug use, last used 3 days ago. Recently on doxycycline for known epididymitis CTA chest/abdomen and pelvis demonstrated suspicion of pneumonitis versus atypical pneumonia and periportal edema and lymphadenopathy consistent with hepatitis Scrotal ultrasound showed hypervascularity of the right epididymis consistent with acute epididymitis Given severity of illness patient ~5L IVF, required Levophed for pressure support however was successfully weaned Was started on Cefepime, Flagyl, Vancomycin for empiric coverage Plan Sepsis appears to be resolving Blood cultures pending Echocardiogram to r/o endocarditits Continue cefepime and vancomycin, switch Flagyl to doxycycline for better atypical coverage Continue to monitor heart rate and vital signs Repeat CBC and BMP in the morning - Time Spent with Patient Total time spent is greater than 50% in coordination of care (as documented) at patient's floor/unit and/or counseling patient: Internal Medicine: Result - Labs CBC & Chem 7: 03/28/19 04:28 03/28/19 04:28 Labs: Short CBC 03/27/19 03/28/19 Range/Units 13:41 04:28 WBC 11.5 H 34.3 H* D (4.3-11.1) K/mcL Hgb 14.6 12.6 L D (12.9-16.9) g/dL Hct 45.3 37.2 L (37.5-50.1) % Plt Count 164 133 L (140-400) K/mcL Neutrophils # 11.2 H 28.0 H (1.6-8.9) K/mcL BMP 03/27/19 03/28/19 13:41 04:28 Sodium 140 135 L Potassium 5.0 4.2 Chloride 101 107 Carbon Dioxide 28 21 L BUN 12 16 Creatinine 1.04 0.81 Glucose 129 H 83 Calcium 9.5 7.4 L Liver Function 03/27/19 03/28/19 Range/Units 13:41 04:28 Total Bilirubin 2.2 H 2.2 H (0.3-1.0) mg/dL Direct Bilirubin 1.5 H (0.0-0.2) mg/dL AST 237 H 86 H (13-39) Units/L ALT 129 H 82 H (7-52) Units/L Alkaline Phosphatase 218 H 121 H (34-104) Units/L Albumin 3.6 2.8 L (3.5-5.7) g/dL Urine 03/27/19 Range/Units 15:37 Urine Color Dark Yellow (Yellow) Urine Clarity Clear (Clear) Urine pH 6.0 (5.0-8.0) pH Units Ur Specific [place] < 1.005 L (1.010-1.025) Urine Protein Negative (Neg-Trace) mg/dL Urine Glucose (UA) Normal (Normal) mg/dL - Impressions Impressions Scrotum Ultrasound 03/27/19 17:20 IMPRESSION: Unremarkable testicular ultrasound with normal Doppler flow. No evidence of testicular torsion. Hypervascular right epididymis consistent with acute epididymitis. D/ / Arya Jameson MD / Arya Jameson MD Interpreting Provider: Arya Jameson MD Chest X-Ray 03/27/19 18:36 IMPRESSION: No focal consolidation. Some fullness in the right hilar region raises possibility of adenopathy. Consider CT chest with IV contrast for further evaluation. D/ / Bayron Diehl MD / Bayron Diehl MD Interpreting Provider: Bayron Diehl MD Abdomen/Pelvis CT 03/27/19 19:06 IMPRESSION: 1. No evidence for acute pulmonary embolism. 2. Scattered areas of ill-defined patchy ground-glass attenuation is, some septal thickening and micro nodularities in the periphery of the right lower lobe, middle lobe and small area in the left lower lobe. There is accompanying right hilar adenopathy likely reactive. Findings may reflect developing pneumonitis possibly an atypical pneumonia. 3. Periportal edema and lymphadenopathy in keeping with the history of hepatitis. D/ / Bayron Diehl MD / Bayron Diehl MD Interpreting Provider: Bayron Diehl MD Chest CTA 03/27/19 19:23 IMPRESSION: 1. No evidence for acute pulmonary embolism. 2. Scattered areas of ill-defined patchy ground-glass attenuation is, some septal thickening and micro nodularities in the periphery of the right lower lobe, middle lobe and small area in the left lower lobe. There is accompanying right hilar adenopathy likely reactive. Findings may reflect developing pneumonitis possibly an atypical pneumonia. 3. Periportal edema and lymphadenopathy in keeping with the history of hepatitis. D/ / Bayron Diehl MD / Bayron Diehl MD Interpreting Provider: Bayron Diehl MD Consult Discharge Plan - Plan Referrals: NONE,PCP [Primary Care Provider] - <Artem Gutierrez - Last Filed: 03/28/19 16:59> Hospitalist Progress Note - Encounter Date of Encounter: 03/28/19 - Exam Vitals: Temp Pulse Resp BP Pulse Ox 97.9 F 89 18 108/68 100 03/28/19 16:31 03/28/19 16:31 03/28/19 16:31 03/28/19 16:31 03/28/19 16:31 - Assessment and Plan (1) Epididymitis Current Visit: Yes Status: Acute (2) Pneumonia Current Visit: Yes Status: Suspected (3) IVDU (intravenous drug user) Current Visit: Yes Status: Acute (4) DVT prophylaxis Current Visit: Yes Status: Acute (5) Elevated liver enzymes Current Visit: Yes Status: Acute (6) Sepsis Current Visit: Yes Status: Acute (7) Hep C w/o coma, chronic Current Visit: Yes Status: Chronic (8) Tobacco abuse Current Visit: Yes Status: Acute - Time Spent with Patient Total time spent is greater than 50% in coordination of care (as documented) at patient's floor/unit and/or counseling patient: Internal Medicine: Result - Labs CBC & Chem 7: 03/28/19 04:28 03/28/19 04:28 Labs: Short CBC 03/28/19 Range/Units 04:28 WBC 34.3 H* D (4.3-11.1) K/mcL Hgb 12.6 L D (12.9-16.9) g/dL Hct 37.2 L (37.5-50.1) % Plt Count 133 L (140-400) K/mcL Neutrophils # 28.0 H (1.6-8.9) K/mcL BMP 03/27/19 03/28/19 13:41 04:28 Sodium 140 135 L Potassium 5.0 4.2 Chloride 101 107 Carbon Dioxide 28 21 L BUN 12 16 Creatinine 1.04 0.81 Glucose 129 H 83 Calcium 9.5 7.4 L Liver Function 03/27/19 03/28/19 Range/Units 13:41 04:28 Total Bilirubin 2.2 H 2.2 H (0.3-1.0) mg/dL Direct Bilirubin 1.5 H (0.0-0.2) mg/dL AST 237 H 86 H (13-39) Units/L ALT 129 H 82 H (7-52) Units/L Alkaline Phosphatase 218 H 121 H (34-104) Units/L Albumin 3.6 2.8 L (3.5-5.7) g/dL - Impressions Impressions Scrotum Ultrasound 03/27/19 17:20 IMPRESSION: Unremarkable testicular ultrasound with normal Doppler flow. No evidence of testicular torsion. Hypervascular right epididymis consistent with acute epididymitis. D/ / Arya Jameson MD / Arya Jameson MD Interpreting Provider: Arya Jameson MD Chest X-Ray 03/27/19 18:36 IMPRESSION: No focal consolidation. Some fullness in the right hilar region raises possibility of adenopathy. Consider CT chest with IV contrast for further evaluation. D/ / Bayron Diehl MD / Bayron Diehl MD Interpreting Provider: Bayron Diehl MD Abdomen/Pelvis CT 03/27/19 19:06 IMPRESSION: 1. No evidence for acute pulmonary embolism. 2. Scattered areas of ill-defined patchy ground-glass attenuation is, some septal thickening and micro nodularities in the periphery of the right lower lobe, middle lobe and small area in the left lower lobe. There is accompanying right hilar adenopathy likely reactive. Findings may reflect developing pneumonitis possibly an atypical pneumonia. 3. Periportal edema and lymphadenopathy in keeping with the history of hepatitis. D/ / Bayron Diehl MD / Bayron Diehl MD Interpreting Provider: Bayron Diehl MD Chest CTA 03/27/19 19:23 IMPRESSION: 1. No evidence for acute pulmonary embolism. 2. Scattered areas of ill-defined patchy ground-glass attenuation is, some septal thickening and micro nodularities in the periphery of the right lower lobe, middle lobe and small area in the left lower lobe. There is accompanying right hilar adenopathy likely reactive. Findings may reflect developing pneumonitis possibly an atypical pneumonia. 3. Periportal edema and lymphadenopathy in keeping with the history of hepatitis. D/ / Bayron Diehl MD / Bayron Diehl MD Interpreting Provider: Bayron Diehl MD Echocardiogram 03/28/19 00:02 Impressions: LVEF 60%. Normal LV chamber size, wall thickness and function. Normal left ventricular diastolic function. Normal right ventricular structure and function. No evidence of pulmonary hypertension. No significant valvular dysfunction Left Ventricular Wall Motion: Rest Echo Findings All wall segments showed normal motion. Findings: Study Quality * Technically adequate exam. ECG Findings * Normal sinus rhythm. Left Ventricle * LVEF 60%. * Normal LV chamber size, wall thickness and function. * Normal left ventricular diastolic function. Right Ventricle * Normal right ventricular structure and function. Left Atrium * Normal left atrial size. Right Atrium * Normal right atrial size. Aortic Valve * Aortic valve not well visualized. * No aortic regurgitation. * No aortic stenosis. Mitral Valve * Normal mitral valve structure. * No mitral regurgitation. * No mitral stenosis. Tricuspid Valve * Normal tricuspid valve structure. * No evidence of pulmonary hypertension. * No tricuspid regurgitation. * No tricuspid stenosis. Pulmonic Valve * No pulmonic regurgitation. Aorta * Normally sized aortic root. Pericardium * The pericardium appears normal. IVC * The IVC is dilated. Pulmonary Artery * Normal visualized portions of the main pulmonary artery. - Attending Attestation I examined this patient and my medical decision-making was reviewed with the Resident Physician on 03/28/19. I agree with the documented findings, disposition and treatment plan as described except to the extent set forth below. Mr Ann is currently admitted for sepsis related to epidydimitis/possible pneumonia. He remains moderate to high risk due to potential for worsening clinical status. Mr Ann is resting in bed. He is feeling somewhat better today though WBC is much higher. He is having back pain - not midline. No diarrhea. Exam alert Mucus membranes dry Heart reg Lungs with scattered rhonchi Abd soft No edema Tender paraspinal areas lumbar area - no midline tenderness I/P 1. Sepsis - continue IV abx. 2. Epidydimitis- 3. Probable pneumonia - ? septic emboli. Echo pending. 4. Hx IV drug abuse 5. Hep C Further diagnoses and plan as above Transfer out of ICU. <Azeem Kidd - Last Filed: 03/28/19 15:43> (1) Pneumonia Qualifiers: Pneumonia type: due to unspecified organism Laterality: unspecified laterality Lung location: unspecified part of lung Qualified Code(s): J18.9 - Pneumonia, unspecified organism (6) Sepsis Qualifiers: Sepsis type: sepsis due to unspecified organism Qualified Code(s): A41.9 - Sepsis, unspecified organism <Artem Gutierrez - Last Filed: 03/28/19 16:59> (2) Pneumonia Qualifiers: Pneumonia type: due to unspecified organism Laterality: unspecified laterality Lung location: unspecified part of lung Qualified Code(s): J18.9 - Pneumonia, unspecified organism (6) Sepsis Qualifiers: Sepsis type: sepsis due to unspecified organism Qualified Code(s): A41.9 - Sepsis, unspecified organism
[2019-03-28] MEDS: 0.9 % Sodium Chloride 1,000 ML IVC SCH (08:51)
[2019-03-28] MEDS: *HR* Heparin 5,000 UNIT/ML VIAL SQ SCH ×3 (08:55→22:46)
[2019-03-28] MEDS ORDERED: cefTRIAXone 1,000 MG in Water for inj. (sterile) 20 ML 10 ML IVP SCH (09:00)
[2019-03-28] MEDS ORDERED: Doxycycline 100 MG in 0.9 % Sodium Chloride Mini Bag 100 ML IVPB SCH ×2 (09:46→18:00)
[2019-03-28] MEDS ORDERED: Ondansetron 4 MG/2 ML VIAL IVP PRN (14:07)
[2019-03-28] MEDS ORDERED: Isovue-370 500 ML BOTTLE IVP ONE (14:07)
[2019-03-28] MEDS ORDERED: Naloxone 0.4 MG/ML INJ IVP PRN (14:07)
[2019-03-28] MEDS ORDERED: Norepinephrine 4 MG in D5% in Water 250 ML IVC SCH (14:07)
[2019-03-28] MEDS ORDERED: 0.9 % Sodium Chloride 1,000 ML IVC SCH (14:07)
--- NOTE | 2019-03-28 14:42 | Electrocardiograph Report ---
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
[2019-03-28] MEDS ORDERED: Ipratropium/Albuterol Neb 3 ML IH PRN (16:14)
[2019-03-28] MEDS: Doxycycline 100 MG in 0.9 % Sodium Chloride Mini Bag 100 ML IVPB SCH (17:56)
[2019-03-28] MEDS ORDERED: Ibuprofen 400 MG TABLET PO ONE (19:31)
[2019-03-28] MEDS: Cefepime HCl 2,000 MG in Water for inj. (sterile) 20 ML 20 ML IVP SCH (20:02)
[2019-03-29] MEDS: Cefepime HCl 2,000 MG in Water for inj. (sterile) 20 ML 20 ML IVP SCH ×2 (06:10→06:23)
[2019-03-29] MEDS: Doxycycline 100 MG in 0.9 % Sodium Chloride Mini Bag 100 ML IVPB SCH ×2 (06:10→08:56)
[2019-03-29] MEDS: *HR* Heparin 5,000 UNIT/ML VIAL SQ SCH (06:11)
--- NOTE | 2019-03-29 08:08 | Internal Med Progress Note ---
Hospitalist Progress Note - Encounter Date of Encounter: 03/29/19 - Exam Vitals: Temp Pulse Resp BP Pulse Ox 98.2 F 77 17 129/77 100 03/29/19 07:20 03/29/19 07:20 03/29/19 07:20 03/29/19 07:20 03/29/19 07:20 Exam: Gen: Vitals noted. No acute distress. Eyes: anicteric sclerae, moist conjunctivae; no lid-lag; Pupils equal and reactive to light HENT: Atraumatic; oropharynx clear with moist mucous membranes and no mucosal ulcerations; normal hard and soft palate Neck: Trachea midline; supple, no thyromegaly or lymphadenopathy Cardiac: RRR, no murmur, +S1/S2 Pulmonary: Diffusely wheezy bilaterally with no superimposed rales or rhonchi Abdomen: soft, nontender, no guarding. No masses or hepatosplenomegaly : Uncircumcised male genitalia without lesions noted, no discharge. Scrotum intact, no erythema present. Testes tender to palpation however no lumps or irregularities noted. Rectal: Deferred MSK: ROM intact, no joint swelling noted Extremities: no BLE edema, nontender calf, no cyanosis or clubbing Skin: Normal temperature, turgor and texture; no rash, ulcers or subcutaneous nodules Neuro: moves all extremities, no focal deficits. Psych: Appropriate mood and behavior. A&Ox3 - Assessment and Plan (1) Sepsis Current Visit: Yes Status: Acute Assessment and Plan: Sepsis secondary to epididymitis versus pneumonia Presented with WBC 11.5 -> 34.3, HR >120, BP 87/63, Lactic acid 2.3 -> 2.6. Suspected source epididymitis vs. pneumonia Patient does have history of IV drug use, last used 3 days ago. Recently on doxycycline for known epididymitis CTA chest/abdomen and pelvis demonstrated suspicion of pneumonitis versus atypical pneumonia and periportal edema and lymphadenopathy consistent with hepatitis Scrotal ultrasound showed hypervascularity of the right epididymis consistent with acute epididymitis Given severity of illness patient ~5L IVF, required Levophed for pressure support however was successfully weaned Was started on Cefepime, Flagyl, Vancomycin for empiric coverage Plan Sepsis appears to be resolving Blood cultures pending, urine antigens for s. pneumo and legionella pending Echocardiogram to r/o endocarditits Continue cefepime and vancomycin, switch Flagyl to doxycycline for better atypical coverage Continue to monitor heart rate and vital signs Repeat CBC and BMP in the morning (2) Pneumonia Current Visit: Yes Status: Suspected Assessment and Plan: Suspected atypical pneumonia as demonstrated on CT chest May be a source of severe sepsis Patient has substantial wheezing noted bilaterally Blood cultures pending at this time Continue cefepime, vancomycin, doxycycline day 2 Duo nebs as needed Monitor oxygen, supplement as needed Incentive spirometer (3) Epididymitis Current Visit: Yes Status: Acute Assessment and Plan: Acute epididymitis as demonstrated by ultrasound Patient currently on cefepime, vancomycin, doxycycline (4) IVDU (intravenous drug user) Current Visit: Yes Status: Acute Assessment and Plan: History of IV drug use, last known use 3 days ago (5) Elevated liver enzymes Current Visit: Yes Status: Acute Assessment and Plan: Liver enzymes elevated on arrival Hepatitis C positive, known Trending downward (6) Hep C w/o coma, chronic Current Visit: Yes Status: Chronic Assessment and Plan: Chronic (7) Tobacco abuse Current Visit: Yes Status: Acute (8) DVT prophylaxis Current Visit: Yes Status: Acute Assessment and Plan: Subcutaneous heparin - Time Spent with Patient Total time spent is greater than 50% in coordination of care (as documented) at patient's floor/unit and/or counseling patient: Internal Medicine: Result - Labs CBC & Chem 7: 03/28/19 04:28 03/28/19 04:28 - Impressions Impressions Echocardiogram 03/28/19 00:02 Impressions: LVEF 60%. Normal LV chamber size, wall thickness and function. Normal left ventricular diastolic function. Normal right ventricular structure and function. No evidence of pulmonary hypertension. No significant valvular dysfunction Left Ventricular Wall Motion: Rest Echo Findings All wall segments showed normal motion. Findings: Study Quality * Technically adequate exam. ECG Findings * Normal sinus rhythm. Left Ventricle * LVEF 60%. * Normal LV chamber size, wall thickness and function. * Normal left ventricular diastolic function. Right Ventricle * Normal right ventricular structure and function. Left Atrium * Normal left atrial size. Right Atrium * Normal right atrial size. Aortic Valve * Aortic valve not well visualized. * No aortic regurgitation. * No aortic stenosis. Mitral Valve * Normal mitral valve structure. * No mitral regurgitation. * No mitral stenosis. Tricuspid Valve * Normal tricuspid valve structure. * No evidence of pulmonary hypertension. * No tricuspid regurgitation. * No tricuspid stenosis. Pulmonic Valve * No pulmonic regurgitation. Aorta * Normally sized aortic root. Pericardium * The pericardium appears normal. IVC * The IVC is dilated. Pulmonary Artery * Normal visualized portions of the main pulmonary artery. Consult Discharge Plan - Plan Referrals: NONE,PCP [Primary Care Provider] - (1) Sepsis Qualifiers: Sepsis type: sepsis due to unspecified organism Qualified Code(s): A41.9 - Sepsis, unspecified organism (2) Pneumonia Qualifiers: Pneumonia type: due to unspecified organism Laterality: unspecified later ality Lung location: unspecified part of lung Qualified Code(s): J18.9 - Pneumonia, unspecified organism
[2019-03-29] MEDS ORDERED: Doxycycline 100 MG CAPSULE PO SCH (09:00)
[2019-03-29 10:42] VITALS: BP 116/79
[2019-03-29 10:45] LABS: Basophils % 0.2 %; Eosinophils # 0.2 K/mcL (0.0-0.6); Eosinophils % 1.1 %; Hematocrit 37.5 % (37.5-50.1); Hemoglobin 12.5 g/dL (12.9-16.9); Immature Granulocytes % 1.2 % (0-4); Lymphocytes # 3.3 K/mcL (0.6-4.6); Lymphocytes % 20.3 %; Mean Corpuscular HGB Conc 33.3 g/dL (31.6-35.5); Mean Corpuscular Hemoglobin 29.1 pg (28.0-33.3); Mean Corpuscular Volume 87.2 fL (83.0-100.0); Mean Platelet Volume 10.6 fL (9.4-12.4); Monocytes # 0.7 K/mcL (0.0-1.3); Monocytes % 4.5 %; Neutrophils # 11.8 K/mcL (1.6-8.9); Platelet Count 135 K/mcL (140-400); Red Cell Distribution Width 14.3 % (11.5-14.5); Segmented Neutrophils % 72.7 %
[2019-03-29 10:52] LABS: INR 1.2; Prothrombin Time 13.2 Seconds (9.4-12.1)
[2019-03-29 10:59] LABS: Alanine Aminotransferase 56 Units/L (7-52); Albumin 3.2 g/dL (3.5-5.7); Albumin/Globulin Ratio 1.1 (1.1-2.2); Alkaline Phosphatase 135 Units/L (34-104); Aspartate Amino Transferase 46 Units/L (13-39); BUN/Creatinine Ratio 14 (6-26); Bilirubin,Total 0.6 mg/dL (0.3-1.0); Blood Urea Nitrogen 12 mg/dL (6-20); Calcium 8.7 mg/dL (8.6-10.3); Carbon Dioxide 29 mEq/L (23-29); Chloride 107 mEq/L (98-107); Glucose 90 mg/dL (70-105); Osmolality,Calculated 289 (280-300); Potassium 4.2 mEq/L (3.5-5.1); Sodium 140 mEq/L (136-145); Total Protein 6.2 g/dL (6.4-8.9); eGFR For Non-African Americans > 60 (> 60)
[2019-03-29] MEDS ORDERED: levoFLOXacin 750 MG TABLET PO ONE (11:20)
--- NOTE | 2019-03-29 14:53 | Infectious Disease Consult ---
Infectious Disease-Consult - Encounter Date/Time Date of Encounter: 03/29/19 Time of Encounter: 14:43 - Data of Consult Patient: new to practice Reason for consult: Unclear infectious etiology in IV drug abuser. Consult date: 03/29/19 Requesting Physician: Artem Gutierrez DO Primary Care Provider: PCP NONE - HPI HPI: Patient is a 33 year old gentleman who presented to [facility] on 03/27/2019 with lower back pain, testicular pain. We are consulted today for unclear infectious etiology and IV drug abuser. Patient is a 33-year-old gentleman who is been an IV drug user for a few years including heroin and amphetamines also had a history of hepatitis A, B, and C and had history of gonorrhea a urinary half ago that was treated as an outpatient with urinary retention for almost a year without any follow-up with her PCP or urologist stated that he has been having testicular pain and swelling for almost 4 weeks prior to admission. The pain became so severe and was associated with lower back pain. Patient also was having fevers, chills, some rigors. On further questioning patient also does have headache that is on the bilateral sides. Denies any proteinuria no sore throat no chest pain no shortness of breath. Patient admits to lower quadrant abdominal pain bilaterally. That is dull. Patient also states that he has some nausea but no vomiting. No diarrhea no constipation. Patient denies any rash. Patient denies any joint pain or effusion. Since admission, patient has been afebrile, tachycardic without tachypnea. Presenting labs revealed a PO2 of 11.5 the junk to 34.3 with bandemia. Rest of the labs revealed a BUN of 12 creatinine 1.04 lactic acidosis at 2.6 a urinalysis showed no pyuria, no bacteria and trace leukocyte esterase a urine culture was done. A tox screen was positive for benzos, amphetamines and opiates. MRSA screen was negative. Patient's serologies are negative for chlamydia PCR, negative for syphilis, negative for gonorrhea, negative for HIV, negative for hepatitis a or B, but positive for hepatitis C. Urine culture from March 27 no growth. Blood cultures from March 27 no growth to date. Ultrasound of the scrotum reveals unremarkable testicular ultrasound with normal Doppler flow. No evidence of testicular torsion. Hypervascular right epididymis consistent with acute epididymitis. CT chest revealed scattered areas of ill-defined patchy ground glass attenuation and some septal thickening and micro- nodularities in the periphery of the right lower lobe right middle lobe and left lower lobe. Patient also had some accompanying right hilar adenopathy likely reactive. Concern for pneumonitis versus atypical pneumonia. CT abdomen reveals. Portal edema and lymphadenopathy in keeping with history of hepatitis. - ROS Review of Systems: Employed review of systems done, negative other for what mentioned in the history of present illness - Results CBC & Chem 7: 03/29/19 10:21 03/29/19 10:21 - Exam Vitals: Temp Pulse Resp BP Pulse Ox 98.1 F 76 16 116/79 100 03/29/19 10:41 03/29/19 10:41 03/29/19 10:41 03/29/19 10:41 03/29/19 10:41 Exam: GENERAL: Laying in bed, appears comfortable. HEAD: Normocephalic atraumatic EYES: PERRLA, EOMI, no conjunctival hemorrhage, sclera anicteric ENT: Mucous membranes moist, positie oral thrush. Poor dentition NECK: Supple. No meningeal signs. No masses LUNGS: Chest expanding symmetrically. Lungs sounds audible both lung becerra. No wheezing, no rhonchi CV: RRR, S1S2, I didnt appreciate any murmur ABDOMEN: Soft, nontender, nondistended. Bowel sounds audible BACK: No CVA tenderness. Normal inspection. No tenderness over the spine EXTREMITY: Adequate perfusion. No joint effusion. SKIN: Normal color. No rash. NEURO: Awake alert oriented 3. No obvious focal deficit PSYCH: Calm and appropriate. No agitation. No Known Home Drugs 03/28/19 [History] Allergy/AdvReac Type Severity Reaction Status Date / Time Amoxicillin Allergy Hives Verified 03/28/19 12:10 aspirin Allergy Hives Verified 03/28/19 12:10 - Assessment and Plan (1) Severe sepsis Current Visit: Yes Status: Acute On admission patient had 3 SIRS criteria plus lactic acidosis Secondary to epididymitis versus pneumonia (atypical) SNOMED Code(s): 10184030 (2) Atypical pneumonia Current Visit: Yes Status: Acute CT chest 03/27/2019: Scattered areas of ill-defined patchy ground glass attenuation was some septal thickening of micronodular the in the periphery of the right, middle and left lower lobe Etiology not clear patient has no viral syndrome Atypical infection versus pneumonitis I did go over the CAT scan with the pulmonary team and they were not impressed either Patient already on doxycycline which should have atypical coverage No further recommendations needed Index of suspicion for septic emboli is very low SNOMED Code(s): 949436761 (3) Epididymitis Current Visit: Yes Status: Acute Based on the clinical picture and ultrasound findings on admission Workup negative for gonorrhea and chlamydia Improved clinically Continue IV doxycycline With appreciate urology input Monitor labs and for drug toxicity SNOMED Code(s): 03605488 (4) Urinary retention Current Visit: Yes Status: Acute Going on for a whole year Concern for possible stricture from recurrent STDs Urology to evaluate SNOMED Code(s): 702450265 (5) IVDU (intravenous drug user) Current Visit: Yes Status: Acute SNOMED Code(s): 016150234 (6) Elevated liver enzymes Current Visit: Yes Status: Acute SNOMED Code(s): 378071200 (7) Tobacco abuse Current Visit: Yes Status: Acute wants a nicotine patch SNOMED Code(s): 120433064 (8) Hepatitis C Current Visit: Yes Status: Acute Qualifiers: Viral hepatitis chronicity: chronic Hepatic coma status: without hepatic coma Qualified Code(s): B18.2 - Chronic viral hepatitis C SNOMED Code(s): 94434484 Past Med Surg Social Fam HX - Past Medical History Medical history: asthma Additional medical history: IV drug abuse, Psychiatric history: no psych history - Past Surgical History Surgical History: orthopedic, other Additional surgical history: finger sx - Social History Smoking Status: Current every day smoker Smokeless Tobacco Status: No Alcohol use: none Drug use: opiates, methamphetamine, IV Drug Use Consult Discharge Plan - Plan Referrals: NONE,PCP [Primary Care Provider] -
[2019-03-29] MEDS ORDERED: Aminoglycoside Consult 1 EACH MC ONE (15:16)
--- NOTE | 2019-03-29 17:18 | Discharge Summary ---
<Azeem Kidd - Last Filed: 03/29/19 17:16> - NOTES TO OUTPATIENT PROVIDER Notes to Outpatient Provider: Patient presented with epididymitis, went into septic shock. Received multiple different antibiotics and recovered. Left AGAINST MEDICAL ADVICE however Discharged on Levaquin. Orders not resulted at time of discharge: Pending orders 03/27/19 17:05 Culture,Blood [BC] Stat 03/29/19 11:13 Legionella Antigen [RM] Routine Streptococcal pneumoniae urin antigen [S. Pneumoniae Antigen] [RM] Routine Date of Encounter: 03/29/19 Time of Encounter: 15:15 - Discharge Diagnosis (1) Sepsis Priority: Primary Status: Acute Qualifiers: Sepsis type: sepsis due to unspecified organism Qualified Code(s): A41.9 - Sepsis, unspecified organism (2) Epididymitis Priority: Secondary Status: Acute (3) Pneumonia Priority: Secondary Status: Suspected Qualifiers: Pneumonia type: due to unspecified organism Laterality: unspecified laterality Lung location: unspecified part of lung Qualified Code(s): J18.9 - Pneumonia, unspecified organism (4) IVDU (intravenous drug user) Priority: Secondary Status: Acute (5) Elevated liver enzymes Priority: Secondary Status: Acute (6) Hep C w/o coma, chronic Priority: Secondary Status: Chronic (7) Tobacco abuse Priority: Secondary Status: Acute Hospital course: Mr. Ann is a 33 year old male with history of IV drug use and recent treatment for epididymitis presented to the emergency department with complaints of generalized malaise and testicular pain. He was found to have concern of e pididymitis versus atypical pneumonia. The patient was initially given doses of Rocephin, Levaquin, azithromycin however following knees, the patient got acutely worse and developed a large spike in white blood cell to 34. He also developed hypotension and became acutely severely septic. He was transferred to the ICU with a central line at which point he required Levophed for blood pressure support. He remained there on cefepime, doxycycline, and vancomycin intially however was transferred out when he stabilized. The patient's labs returned this morning and had improved dramatically, however no cultures resulted. He did decide to leave [place]. He was discharged with a prescription for levaquin to cover possible atypical pna and epididymitis. Discharge discussed with: patient, family, nurse, bridal consultant - Time Spent with Patient Total time spent providing and/or coordinating discharge services: - Discharge Medications Prescriptions: New levoFLOXacin [Levaquin] 750 mg PO DAILY 9 Days #9 tablet Home Medications: levoFLOXacin [Levaquin] 750 mg PO DAILY 9 Days #9 tablet 03/29/19 [Rx] Allergies/Adverse Reactions: Allergy/AdvReac Type Severity Reaction Status Date / Time Amoxicillin Allergy Hives Verified 03/28/19 12:10 aspirin Allergy Hives Verified 03/28/19 12:10 Date of admission: 03/28/19 01:48 Primary care physician: PCP NONE Consults: 03/28/19 04:46 Consult to Infectious Diseases [CONS] Routine Consulting Provider: Infectious Disease [place] Reason for Consult: Unclear infectious etiology in IV drug abuser Call Completed: No Discharging clinician: Azeem Kidd Anticipated date of discharge: 03/29/19 - Constitutional Vitals: Temp Pulse Resp BP Pulse Ox 98.1 F 76 16 116/79 100 03/29/19 10:41 03/29/19 10:41 03/29/19 10:41 03/29/19 10:41 03/29/19 10:41 Exam: Gen: Vitals noted. No acute distress. Eyes: anicteric sclerae, moist conjunctivae; no lid-lag; Pupils equal and reactive to light HENT: Atraumatic; oropharynx clear with moist mucous membranes and no mucosal ulcerations; normal hard and soft palate Neck: Trachea midline; supple, no thyromegaly or lymphadenopathy Cardiac: RRR, no murmur, +S1/S2 Pulmonary: Diffusely wheezy bilaterally with no superimposed rales or rhonchi Abdomen: soft, nontender, no guarding. No masses or hepatosplenomegaly : Uncircumcised male genitalia without lesions noted, no discharge. Scrotum intact, no erythema present. Testes less tender to palpation however no lumps or irregularities noted. Rectal: Deferred MSK: ROM intact, no joint swelling noted Extremities: no BLE edema, nontender calf, no cyanosis or clubbing Skin: Normal temperature, turgor and texture; no rash, ulcers or subcutaneous nodules Neuro: moves all extremities, no focal deficits. Psych: Appropriate mood and behavior. A&Ox3 - Patient Status Disposition: Left Against Medical Advice Condition: Fair Functional capacity at discharge: independent ambulation Overall status at discharge: patient is back to baseline - Discharge Instructions Follow Up With: NONE,PCP [Primary Care Provider] - Additional Instructions: Continue with Levaquin for prescribed duration. Follow-up with primary care as soon as possible. If you continue to have symptoms or returning fevers, return to the ED. - Diet and Activity Activity: increase activity as tolerated Diet: advance to your usual diet <Artem Gutierrez - Last Filed: 03/29/19 17:40> Orders not resulted at time of discharge: Pending orders 03/27/19 17:05 Culture,Blood [BC] Stat 03/29/19 11:13 Legionella Antigen [RM] Routine Streptococcal pneumoniae urin antigen [S. Pneumoniae Antigen] [RM] Routine Date of Encounter: 03/29/19 - Discharge Diagnosis (1) Pneumonia Status: Suspected Qualifiers: Pneumonia type: due to unspecified organism Laterality: unspecified laterality Lung location: unspecified part of lung Qualified Code(s): J18.9 - Pneumonia, unspecified organism (2) Epididymitis Status: Acute (3) IVDU (intravenous drug user) Status: Acute (4) Elevated liver enzymes Status: Acute (5) Sepsis Status: Acute Qualifiers: Sepsis type: sepsis due to unspecified organism Qualified Code(s): A41.9 - Sepsis, unspecified organism (6) Hep C w/o coma, chronic Status: Chronic (7) Tobacco abuse Status: Acute Hospital course: Mr. Ann is a 33 year old male - Time Spent with Patient Total time spent providing and/or coordinating discharge services: Date of admission: 03/28/19 01:48 Primary care physician: PCP NONE Consults: 03/28/19 04:46 Consult to Infectious Diseases [CONS] Routine Consulting Provider: Infectious Disease [facility] Reason for Consult: Unclear infectious etiology in IV drug abuser Call Completed: No - Constitutional Vitals: Temp Pulse Resp BP Pulse Ox 98.1 F 76 16 116/79 100 03/29/19 10:41 03/29/19 10:41 03/29/19 10:41 03/29/19 10:41 03/29/19 10:41 - Attending Attestation I examined this patient and my medical decision-making was reviewed with the Resident Physician on 03/29/19. I agree with the documented findings, disposition and treatment plan as described except to the extent set forth below. Mr Ann has been admitted for acute sepsis due to presumed epidydimitis versus pneumonia. He has been improving with abx. He has chosen to sign out AMA despite being told the risks. Exam alert Comfortable Mucus membranes dry No tenderness in groin Plan AMA discharge
== END 2019-03-29 15:17 | disposition left against medical advice (07) | DRG 720 ==
LOC: EMEROOARM 13:23 → ICNU 13:23 → SUATTDRO 03-28 01:48 → 2ANU 03-28 13:47
PROVIDERS: ADMIT Internal Medicine; ATTEND Internal Medicine